=== PATIENT | male | born 1950 | race African-American/Black ===

== ENCOUNTER 2017-01-21 17:08 | Emergency (ER) | payer MEDICARE ==
[~2017-01-21] VITALS: Ht 175.3 cm; Wt 88.0 kg
[2017-01-21] MEDS ORDERED: ACETAMINOPHEN 650MG/20.3ML UDC PO ONE (19:45)
[2017-01-21] MEDS ORDERED: BACITRACIN ZINC OINT UDPKT TOP ONE (23:30)
[2017-01-21] MEDS ORDERED: IBUPROFEN 400MG TABLET PO ONE (23:45)
[2017-01-22 00:27] VITALS: BP 147/82
== END 2017-01-22 00:27 | disposition home or self-care (01) ==
LOC: ER 17:29
DX: S02.2XXA Fracture of nasal bones, initial encounter for closed fracture (principal); S00.83XA Contusion of other part of head, initial encounter; S60.221A Contusion of right hand, initial encounter; F17.200 Nicotine dependence, unspecified, uncomplicated; F12.10 Cannabis abuse, uncomplicated; Y04.8XXA Assault by other bodily force, initial encounter; Y93.89 Activity, other specified; Y92.89 Other specified places as the place of occurrence of the external cause; Y99.8 Other external cause status
CPT/HCPCS: 29125; 70450; 70486; 73060; 73090; 73110; 73130; 99284